=== PATIENT | female | born 1975 | race Caucasian/White ===

== ENCOUNTER 2022-08-25 13:14 | Emergency (ER) | payer OTHER ==
[2022-08-25 13:21] VITALS: BP 157/61; PULSE 89; RESP 19; TEMP 98.2; BMI 22.6
[2022-08-25 14:51] LABS: BASO % 2.3 % (0-2.0); EOS % 2.6 % (0-4.5); HEMATOCRIT 31.2 % (32.4-45.2); HEMOGLOBIN 10.4 GM/dL (10.7-15.3); LYMPH % 33.2 % (8-40); MCH 23.3 pg (25.7-33.7); MCHC 33.2 g/dl (32.0-36.0); MEAN CELL VOLUME 70.1 fl (80-96); MEAN PLT VOLUME 9.9 fl (7.5-11.1); MONO % 10.9 % (3.8-10.2); PLATELET COUNT 237 10^3/uL (134-434); RBC 4.45 M/mm3 (3.60-5.2); RDW 16.4 % (11.6-15.6)
[2022-08-25 14:54] LABS: INR 1.13 (0.83-1.09); PROTHROMBIN TIME (PATIENT) 13.1 SEC (9.7-13.0)
[2022-08-25 14:56] LABS: ACTIVATED PTT 31.8 SECONDS (25.2-36.5)
[2022-08-25 15:15] LABS: ALBUMIN 3.8 g/dl (3.4-5.0); BLOOD UREA NITROGEN 13.7 mg/dL (7-18)
[2022-08-25 15:18] LABS: CREATININE 0.6 mg/dL (0.55-1.3)
[2022-08-25 15:19] LABS: BILIRUBIN,TOTAL 0.3 mg/dL (0.2-1); TOT PROT 8.3 g/dl (6.4-8.2)
[2022-08-25 15:54] LABS: EPI CELLS 4 /uL (0-25.1); HYALINE CASTS 0 /uL (0-3.1); URINE APPEARANCE CLEAR; URINE BACTERIA 97 /uL (0-1359); URINE BILIRUBIN NEGATIVE (NEGATIVE); URINE COLOR RED; URINE GLUCOSE (UA) NEGATIVE (NEGATIVE); URINE KETONE NEGATIVE (NEGATIVE); URINE LEUK ESTERASE TRACE (NEGATIVE); URINE NITRITE NEGATIVE (NEGATIVE); URINE PROTEIN 1+ (NEGATIVE); URINE RBC 2 /uL (0-23.9); URINE UROBILINOGEN 0.2 mg/dL (0.2-1.0); URINE WBC 87 /uL (0-25.8)
== END 2022-08-25 16:16 | disposition home or self-care (01) ==
LOC: JER 13:14
DX: N93.9 Abnormal uterine and vaginal bleeding, unspecified (principal)
CPT/HCPCS: 36415; 80053; 81003; 84443; 84702; 85025; 85610; 85730; 86850; 86900; 86901; 87077; 87086; 99283-25